=== PATIENT | female | born 1950 | race African-American/Black ===

== ENCOUNTER 2018-12-05 21:22 | Emergency (ER) | payer MEDICARE ==
[~2018-12-05] VITALS: Ht 172.7 cm; Wt 86.2 kg
[2018-12-05 21:30] VITALS: BP 151/87
--- NOTE | 2018-12-05 22:19 | PHYS DOC ---
Past Medical History Past Medical History: Hypertension Past Surgical History: Splenectomy Additional Past Surgical Histo: kidney removal Alcohol Use: None Drug Use: None Adult General Chief Complaint Chief Complaint: ANKLE PROBLEM HPI HPI Patient is a 68 year old female who presents with was going down some cement stairs and missed a stair. She states that she rolled her right and left ankle t rying to catch herself. Patient states she did not hit her head and no LOC. Patient denies any neck or back pain or other joint pain. Patient states her right lower leg, right ankle and foot are painful and she cannot move him. Patient's left ankle and foot are painful but she can move at the joint and with her toes. Patient rates her pain a 7 out of 10 at this time. Review of Systems Review of Systems Musculoskeletal: Denies back pain or right and left ankle and foot joint pain [] All other systems were reviewed and found to be within normal limits, except as documented in this note. Current Medications Current Medications Current Medications Medications (Trade) Dose Ordered Sig/Radha Start Time Stop Time Status Last Admin Dose Admin Acetaminophen/ Hydrocodone Bitart (Lortab 5/325) 1 tab 1X ONCE 12/05/18 22:30 12/05/18 22:31 DC 12/05/18 22:53 1 TAB Ibuprofen (Motrin) 800 mg 1X ONCE 12/05/18 22:30 12/05/18 22:31 DC 12/05/18 22:52 400 MG Allergies Allergies Allergies Coded Allergies Type Severity Reaction Last Updated Verified No Known Drug Allergies 12/05/18 No Physical Exam Physical Exam Constitutional: Well developed, well nourished, no acute distress, non-toxic appearance. [] HENT: Normocephalic, atraumatic, bilateral external ears normal, oropharynx moist, no oral exudates, nose normal. [] Eyes: PERRLA, EOMI, conjunctiva normal, no discharge. [] Neck: Normal range of motion, no tenderness, supple, no stridor. [] Skin: Warm, dry, no erythema, no rash. [] Back: No tenderness, no CVA tenderness. [] Extremities: Right tib-fib, right ankle, right foot tenderness, no cyanosis, no clubbing, right ankle ROM not intact, right lower tib-fib, right ankle, right foot 2+ edema. [] Neurologic: Tingling to right lower leg and ankle. Alert and oriented X 3, normal motor function, normal sensory function, no focal deficits noted. [] Psychologic: Affect normal, judgement normal, mood normal. [] Current Patient Data Vital Signs Vital Signs Date Time Temp Pulse Resp B/P (MAP) Pulse Ox O2 Delivery O2 Flow Rate FiO2 12/05/18 22:53 17 96 Room Air 12/05/18 21:30 98.4 92 151/87 (108) 98.4 Lab Values Laboratory Tests Test 12/05/18 23:40 White Blood Count 12.0 x10^3/uL (4.0-11.0) H Red Blood Count 4.61 x10^6/uL (3.50-5.40) Hemoglobin 12.9 g/dL (12.0-15.5) Hematocrit 40.0 % (36.0-47.0) Mean Corpuscular Volume 87 fL (79-100) Mean Corpuscular Hemoglobin 28 pg (25-35) Mean Corpuscular Hemoglobin Concent 32 g/dL (31-37) Red Cell Distribution Width 15.5 % (11.5-14.5) H Platelet Count 299 x10^3/uL (140-400) Neutrophils (%) (Auto) 74 % (31-73) H Lymphocytes (%) (Auto) 19 % (24-48) L Monocytes (%) (Auto) 6 % (0-9) Eosinophils (%) (Auto) 1 % (0-3) Basophils (%) (Auto) 0 % (0-3) Neutrophils # (Auto) 8.9 x10^3/uL (1.8-7.7) H Lymphocytes # (Auto) 2.3 x10^3/uL (1.0-4.8) Monocytes # (Auto) 0.7 x10^3/uL (0.0-1.1) Eosinophils # (Auto) 0.1 x10^3/uL (0.0-0.7) Basophils # (Auto) 0.1 x10^3/uL (0.0-0.2) Prothrombin Time 12.8 SEC (11.7-14.0) Prothrombin Time INR 1.0 (0.8-1.1) Sodium Level 142 mmol/L (136-145) Potassium Level 4.3 mmol/L (3.5-5.1) Chloride Level 104 mmol/L (98-107) Carbon Dioxide Level 30 mmol/L (21-32) Anion Gap 8 (6-14) Blood Urea Nitrogen 11 mg/dL (7-20) Creatinine 1.1 mg/dL (0.6-1.0) H Estimated GFR (Cockcroft-Gault) 59.4 BUN/Creatinine Ratio 10 (6-20) Glucose Level 107 mg/dL (70-99) H Calcium Level 9.6 mg/dL (8.5-10.1) Total Bilirubin 0.2 mg/dL (0.2-1.0) Aspartate Amino Transferase (AST) 26 U/L (15-37) Alanine Aminotransferase (ALT) 24 U/L (14-59) Alkaline Phosphatase 97 U/L (46-116) Total Protein 7.5 g/dL (6.4-8.2) Albumin 3.5 g/dL (3.4-5.0) Albumin/Globulin Ratio 0.9 (1.0-1.7) L Laboratory Tests 12/05/18 23:40 Laboratory Tests 12/05/18 23:40 EKG EKG [] Radiology/Procedures Radiology/Procedures [] Course & Med Decision Making Course & Med Decision Making Patient is a 68 year old female who presents with was going down some cement stairs and missed a stair. She states that she rolled her right and left ankle trying to catch herself. Patient states she did not hit her head and no LOC. Patient denies any neck or back pain or other joint pain. Patient states her right lower leg, right ankle and foot are painful and she cannot move him. Patient's left ankle and foot are painful but she can move at the joint and with her toes. Patient rates her pain a 7 out of 10 at this time. Alert and oriented. Speaks in full clear sentences. PERRLA. Skin pink warm and dry. Patients right ankle is 2+ edema with a noticeable deformity to the tib-fib and ankle is swollen. Patient has no range of motion in the ankle but can wiggle her toes. There is tenderness to the lower tib-fib in the ankle and slight dorsal foot. Pedal pulses strong and present. Skin is pink warm and dry. Cap refill less than 3 seconds. Left ankle is not swollen in there is no tenderness in the ankle and she does have range of motion in that ankle but complains of left medial foot pain tenderness with palpation. There is no deformity in the foot or swelling in the foot. Pedal pulses strong and present in skin is pink warm and dry. Cap refill less than 3 seconds. Patient cannot put weight on the right ankle. Have called and spoken to Dr. Lopez states that this is a Right Pilon Fracture and she needs be transferred to . I have spoken to the patient and she agrees to go to by ambulance. Dr Henao from orthopedics accepted the patient. Patient placed in a Posterior splint by FARTUN Patel. Splint Assessment: Neurovascularly intact post splint placement with good fit. Dragon Disclaimer Dragon Disclaimer This electronic medical record was generated, in whole or in part, using a voice recognition dictation system. Departure Departure Impression: Primary Impression: Pilon fracture of right tibia Disposition: 05 TRANSFER OTHER ( ORTHOPEDICS) Condition: STABLE Referrals: UNKNOWN PCP NAME (PCP) Problem Qualifiers Primary Impression: Pilon fracture of right tibia Encounter type: initial encounter Fracture type: closed Fracture alignment: nondisplaced Qualified Codes: S82.874A - Nondisplaced pilon fracture of right tibia, initial encounter for closed fracture MYRON BRAR [employer] ANALYST Dec 05, 2018 22:19
[2018-12-05] MEDS ORDERED: HYDROcodone/APAP 5/325MG 1 TAB TABLET PO ONE (22:30)
[2018-12-05] MEDS ORDERED: IBUPROFEN 400 MG TABLET. PO ONE (22:30)
[2018-12-05 23:59] LABS: BASO # 0.1 x10^3/uL (0.0-0.2); BASO % 0 % (0-3); EOS # 0.1 x10^3/uL (0.0-0.7); EOS % 1 % (0-3); HEMOGLOBIN 12.9 g/dL (12.0-15.5); LYMPH # 2.3 x10^3/uL (1.0-4.8); LYMPH % 19 % (24-48); MEAN CORPUSCULAR HEMOGLOBIN 28 pg (25-35); MEAN CORPUSCULAR HGB CONC 32 g/dL (31-37); MEAN CORPUSCULAR VOLUME 87 fL (79-100); MONO # 0.7 x10^3/uL (0.0-1.1); MONO % 6 % (0-9); NEUT # 8.9 x10^3/uL (1.8-7.7); NEUT % 74 % (31-73); PLATELET COUNT 299 x10^3/uL (140-400); RED BLOOD COUNT 4.61 x10^6/uL (3.50-5.40); RED CELL DISTRIBUTION WIDTH 15.5 % (11.5-14.5)
[2018-12-06 00:06] LABS: CALCIUM 9.6 mg/dL (8.5-10.1); CREATININE 1.1 mg/dL (0.6-1.0); GFR 59.4; POTASSIUM 4.3 mmol/L (3.5-5.1); PROTHROMBIN TIME PATIENT 12.8 SEC (11.7-14.0)
--- NOTE | 2018-12-06 00:07 | RAD ---
EXAM: 1. Bilateral tibia/fibula 2 views. 2. Bilateral ankle 3 views. 3. Bilateral feet 3 views. HISTORY: Fall, pain. COMPARISON: None. FINDINGS: A comminuted fracture of the distal tibia involves the medial malleolus and posterior malleolus. The medial malleolar fragment is displaced laterally and follows lateral subluxation and tilt of the talus. The posterior malleolar fragment is displaced posteriorly by 7 mm resulting in a 7 mm articular surface gap and 5 mm incongruence. There is also a comminuted fracture of the distal fibular metaphysis. A lateral butterfly fragment measures 4.2 cm craniocaudally. There is posterior angulation of the distal fracture fragment. A nondisplaced fracture of the left distal fibula is best appreciated on the frontal foot radiograph is not well seen on the ankle study. A nondisplaced fracture of the left cuboid is also suspected on the same image. The joint spaces and alignment of the left ankle mortise and foot are maintained. No fractures are appreciated in the right foot or more proximally within either tibia/fibula. 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 IMPRESSION: 1. Comminuted fracture of the right distal tibia involving the medial and posterior malleolar line, resulting in a 7 mm articular surface gap. 2. Comminuted laterally and posteriorly angulated fracture of the right fibular metaphysis. Lateral subluxation of the talus. 3. Nondisplaced fracture of the left distal fibula. 4. Suspect a nondisplaced comminuted fracture of the left cuboid. Electronically signed by: Javier Thayer MD (12/06/2018 12:04 AM) [id number]
[2018-12-06 00:12] LABS: ALBUMIN 3.5 g/dL (3.4-5.0); ALBUMIN/GLOBULIN RATIO 0.9 (1.0-1.7); TOTAL BILIRUBIN 0.2 mg/dL (0.2-1.0); TOTAL PROTEIN 7.5 g/dL (6.4-8.2)
== END 2018-12-06 00:59 | disposition short-term general hospital (02) ==
LOC: ER 21:22
DX: S82.874A Nondisplaced pilon fracture of right tibia, initial encounter for closed fracture (principal); M25.572 Pain in left ankle and joints of left foot; R20.2 Paresthesia of skin; I10 Essential (primary) hypertension; Z90.81 Acquired absence of spleen; X50.1XXA Overexertion from prolonged static or awkward postures, initial encounter; Y93.89 Activity, other specified; Y92.89 Other specified places as the place of occurrence of the external cause; Y99.8 Other external cause status
CPT/HCPCS: 29505; 36415; 73590; 73610; 73630; 80053; 85025; 85610; 99285